=== PATIENT | female | born 1970 | race Caucasian/White ===

== ENCOUNTER 2017-01-30 22:51 | Emergency (ER) | payer BC, OTHER ==
[~2017-01-30] VITALS: Ht 160 cm; Wt 58.0 kg
[2017-01-30 22:57] VITALS: Ht 160 cm; Wt 58.0 kg
[2017-01-30] MEDS ORDERED: ONDANSETRON (ODT) 4 MG TAB ODT STA (23:35)
--- NOTE | 2017-01-30 23:52 | ERD ---
ER Documentation Chief Complaint Date/Time DATE: 01/30/17 TIME: 23:50 Chief Complaint dizziness x 1 week, fast heart rate x 2 days HPI 46-year-old female presents to emergency department for complaints of dizziness , nausea for 1 week, and palpitations for the last 2 days. Patient has been having dizziness on and off, denies any dizziness at this time, patient also had been having on and off palpitations today. Patient denies any chest pain. Patient denies any disorder exertion or dyspnea on lying down. Patient denies any shortness breath. Patient complaints of occasional on and off headache coming in for assessment scale, complaining of his symptoms. Patient denies any vomiting. Patient denies any fever or chills. Her medications up and symptoms. ROS All systems reviewed and are negative except as per history of present illness. Medications Home Meds Reported Medications [none] Unknown Strength No Conflict Check 01/30/17 Allergies Allergies: Coded Allergies: No Known Allergy (Verified , 01/30/17) PMhx/Soc History of Surgery: Yes (2X C SECTION) Anesthesia Reaction: No Hx Neurological Disorder: No Hx Respiratory Disorders: No Hx Cardiac Disorders: No Hx Psychiatric Problems: No Hx Miscellaneous Medical Probl: Yes (ANEMIA) Hx Alcohol Use: Yes Hx Substance Use: No Hx Tobacco Use: No Smoking Status: Never smoker FmHx Family History: No coronary disease, No diabetes, No other Physical Exam Vitals Vital Signs Date Time Temp Pulse Resp B/P Pulse Ox O2 Delivery O2 Flow Rate FiO2 01/30/17 22:57 98.6 90 20 127/76 98 Physical Exam GENERAL: The patient is well developed and appropriate for usual state of health, in no apparent distress. CHEST: Clear to auscultation bilaterally. There are no rales, wheezes or rhonchi. HEART: Regular rate and rhythm. No murmurs, clicks, rubs or gallops. No S3 or S4. ABDOMEN: Soft, nontender and nondistended. Good bowel sounds. No rebound or guarding. No gross peritonitis. No gross organomegaly or masses. No Strange sign or McBurney point tenderness. BACK: No midline or flank tenderness. EXTREMITIES: Equal pulses bilaterally. There is no peripheral clubbing, cyanosis or edema. No focal swelling or erythema. Full range of motion. Grossly neurovascularly intact. NEURO: Alert and oriented. Cranial nerves 2-12 intact. Motor strength in all 4 extremities with 5/5 strength. Sensation grossly intact. Normal speech and gait. SKIN: There is no apparent rash or petechia. The skin is warm and dry. HEMATOLOGIC AND LYMPHATIC: There is no evidence of excessive bruising or lymphedema. No gross cervical, axillary, or inguinal lymphadenopathy. Result Diagram: 01/30/17 0895 01/30/17 7326 Results 24 hrs Laboratory Tests Test 01/30/17 23:55 01/30/17 23:56 Urine Color LT. YELLOW Urine Clarity CLEAR Urine pH 6.0 Urine Specific [place] 1.015 Urine Ketones NEGATIVE Urine Nitrite NEGATIVE Urine Bilirubin NEGATIVE Urine Urobilinogen 0.2 E.U./dL Urine Leukocyte Esterase 1+ Urine Microscopic RBC 0-2/HPF Urine Microscopic WBC 5-10/HPF Urine Squamous Epithelial Cells FEW Urine Bacteria OCCASIONAL Urine Hemoglobin TRACE Urine Glucose NEGATIVE% Urine Total Protein NEGATIVE White Blood Count 6.310^3/ul Red Blood Count 4.8910^6/ul Hemoglobin 10.4g/dl Hematocrit 34.3% Mean Corpuscular Volume 70.1fl Mean Corpuscular Hemoglobin 21.3pg Mean Corpuscular Hemoglobin Concent 30.3g/dl Red Cell Distribution Width 18.3% Platelet Count 23422^3/UL Mean Platelet Volume 11.1fl Neutrophils % 44.5% Lymphocytes % 43.1% Monocytes % 9.2% Eosinophils % 2.4% Basophils % 0.6% Nucleated Red Blood Cells % 0.0/100WBC Neutrophils # 2.810^3/ul Lymphocytes # 2.710^3/ul Monocytes # 0.610^3/ul Eosinophils # 0.210^3/ul Basophils # 0.010^3/ul Nucleated Red Blood Cells # 0.010^3/ul Sodium Level 132mmol/L Potassium Level 3.7mmol/L Chloride Level 106mmol/L Carbon Dioxide Level 27mmol/L Anion Gap 3 Blood Urea Nitrogen 14mg/dl Creatinine 0.50mg/dl Glucose Level 97mg/dl Calcium Level 9.7mg/dl Total Bilirubin 0.0mg/dl Direct Bilirubin 0.00mg/dl Indirect Bilirubin 0.0mg/dl Aspartate Amino Transf (AST/SGOT) 22IU/L Alanine Aminotransferase (ALT/SGPT) 22IU/L Alkaline Phosphatase 80IU/L Total Protein 7.4g/dl Albumin 4.2g/dl Globulin 3.20g/dl Albumin/Globulin Ratio 1.31 Current Medications Medications (Trade) Dose Ordered Sig/Nathaly Route PRN Reason Start Time Stop Time Status Last Admin Dose Admin Ondansetron HCl (Zofran Odt) 4 mg ONCE STAT ODT 01/30/17 23:35 01/30/17 23:36 DC 01/30/17 23:52 Patient was given Zofran here in the emergency department. After treatment, patient was able to tolerate po fluids here in the emergency department without any vomiting. There is no signs and symptoms of dehydration. EKG was done, read by me and is normal sinus rhythm at a rate of 80, normal axis , there is no ST changes or changes in the EKG that indicates any cardiac emergencies at this time. Patient's EKG was also reviewed by Dr. Bowman. Impression: no acute findings on EKG Procedures/MDM Medical Decision Making: Patient's symptoms of palpitation and dizziness can be from the microcytic anemia seen in the CBC, no other electrolyte imbalance is noted. No suspicion for neurological emergencies. Neurologic exam is normal. There is low suspicion for cardiopulmonary emergencies at this time. Patient has low risk factors. EKG is normal, there is no changes in the EKG that indicates cardiac emergencies. Radiology exam is not indicated at this time. There is low suspicion for aortic aneurysm, myocardial infarction, pneumothorax , pleural effusion, pulmonary embolism, or any other cardiopulmonary emergencies at this time. Prescription was given for ferrous sulfate, Colace, Zofran, is advised to follow-up with primary doctor in 1-2 days for reevaluation of symptoms. Patient was advised to return to emergency department for worsening symptoms. Departure Diagnosis: Primary Impression: Palpitations Additional Impression: Microcytic anemia Condition: Stable Patient Instructions: Anemia, Iron Deficiency (Adult), Palpitations TRAN GAMINO NP Jan 30, 2017 23:51
[2017-01-31 00:33] LABS: ADD SCAN DIFF NO
[2017-01-31 00:36] LABS: ABNORMAL IP MESSAGE 1; BASOPHILS % 0.6 % (0.0-2.0); EOSINOPHILS # 0.2 10^3/ul (0.0-0.5); EOSINOPHILS % 2.4 % (0.0-7.0); HEMATOCRIT 34.3 % (37.0-47.0); HEMOGLOBIN 10.4 g/dl (12.0-16.0); LYMPHOCYTES # 2.7 10^3/ul (0.8-2.9); LYMPHOCYTES % 43.1 % (15.0-51.0); MEAN CORPUSCULAR HEMOGLOBIN 21.3 pg (29.0-33.0); MEAN CORPUSCULAR HGB CONC 30.3 g/dl (32.0-37.0); MEAN CORPUSCULAR VOLUME 70.1 fl (82.0-101.0); MEAN PLATELET VOLUME 11.1 fl (7.4-10.4); MONOCYTE # 0.6 10^3/ul (0.3-0.9); MONOCYTES % 9.2 % (0.0-11.0); NEUTROPHIL # 2.8 10^3/ul (1.6-7.5); NEUTROPHILS % 44.5 % (39.0-77.0); PLATELET COUNT 240 10^3/UL (140-415); RED BLOOD COUNT 4.89 10^6/ul (4.20-5.40); RED CELL DISTRIBUTION WIDTH 18.3 % (11.5-14.5); WHITE BLOOD COUNT 6.3 10^3/ul (4.8-10.8)
[2017-01-31 00:47] LABS: ADD UMIC YES; URINE BILIRUBIN (Dip) NEGATIVE (NEGATIVE); URINE BLOOD (Dip) TRACE (NEGATIVE); URINE COLOR LT. YELLOW (YELLOW); URINE GLUCOSE (Dip) NEGATIVE (NEGATIVE); URINE KETONES (Dip) NEGATIVE (NEGATIVE); URINE LEUKOCYTE ESTERASE (Dip) 1+ (NEGATIVE); URINE NITRITE (Dip) NEGATIVE (NEGATIVE); URINE TOTAL PROTEIN (Dip) NEGATIVE (NEGATIVE); URINE UROBILINOGEN (Dip) 0.2 E.U./dL (0.1-1.0)
[2017-01-31 01:01] LABS: ALBUMIN 4.2 g/dl (3.3-4.9); ALBUMIN/GLOBULIN RATIO 1.31; CALCIUM 9.7 mg/dl (8.4-10.2); CREATININE 0.5 mg/dl (0.44-1.00); POTASSIUM 3.7 mmol/L (3.5-5.1); TOTAL PROTEIN 7.4 g/dl (6.1-8.1)
[2017-01-31 01:06] LABS: BACTERIA,URINE OCCASIONAL; SQUAMOUS EPITHELIAL CELL,UR FEW; URINE RBCS 0-2 /HPF (0)
[2017-01-31] MEDS ORDERED: ONDA4TAB14 PO (01:36)
[2017-01-31] MEDS ORDERED: FER325 PO (01:36)
[2017-01-31] MEDS ORDERED: DOCU-144 PO (01:36)
[2017-01-31 01:59] VITALS: BP 137/65; PULSE 75; RESP 16; TEMP 98.3
== END 2017-01-31 01:59 | disposition home or self-care (01) ==
LOC: FTE 22:51
DX: R00.2 Palpitations (principal); D50.9 Iron deficiency anemia, unspecified; R11.0 Nausea
CPT/HCPCS: 80053; 81001; 81003; 85025; 93005